=== PATIENT | male | born 1960 | race Caucasian/White ===

== ENCOUNTER 2021-07-04 16:08 | Inpatient (IN) | payer SELFPAY ==
[~2021-07-04] VITALS: Ht 177.8 cm; Wt 86.5 kg
[~2021-07-04 16:08] MED LIST: LOVAZA PO; PIOG45TA PO; RAMI10CA PO; ROSU20TA14 PO; SITA100T PO
--- NOTE | 2021-07-04 16:34 | ED Neurological Problem ---
General Stated Complaint: HX STROKE/LOSS OF BALANCE/SPEECH ISSUES Source: patient Exam Limitations: no limitations History of Present Illness Date Seen by Provider: Jul 04, 2021 Time Seen by Provider: 16:29 Initial Comments 61-year-old male non-smoker with history of hypertension, hyperlipidemia, ojd-quznerq-tksobrusw diabetes presents to ER with concern of stroke. On June 15 he had some loss of the left side of his vision in both eyes. He was not initially evaluated for this but was evaluated a few days later by [facility]. He was referred to Dr. NOBLE from optometry who agreed the likely diagnosis was stroke. He was on a baby aspirin initially but was off of it for a few days in preparation for dental extraction and forgot to restart it. He subsequently restarted his baby aspirin about 72 hours ago. Today while at his yougest son's wedding his eldest son who is a nurse noticed his gait to be staggering and dragging one of his feet. No issues with speech. Patient states that his vision today seems as good as it has been for the past 2 to 3 weeks. He is scheduled for MRI of the brain here on the . Timing/Duration: 1 week Severity: moderate Associated Symptoms: denies symptoms Allergies and Home Medications Allergies Coded Allergies: No Known Drug Allergies (Unverified , 06/14/12) Patient Home Medication List Home Medication List Reviewed: Yes Pioglitazone Hcl (Actos) 45 Mg Tablet, 45 MG PO DAILY, (Reported) Entered as Reported by: ILEANA CARRERA on 06/14/121425 Ramipril (Ramipril) 10 Mg Capsule, 10 MG PO DAILY, (Reported) Entered as Reported by: ILEANA CARRERA on 06/14/121425 Rosuvastatin Calcium (Crestor) 20 Mg Tablet, 1 EACH PO DAILY, (Reported) Entered as Reported by: ILEANA CARRERA on 06/14/121425 Sitagliptin Phosphate (Januvia) 100 Mg Tablet, 1 EACH PO DAILY, (Reported) Entered as Reported by: ILEANA CARRERA on 06/14/121425 [Lovaza] , 1 GM PO DAILY, (Reported) Entered as Reported by: ILEANA CARRERA on 06/14/121425 Review of Systems Review of Systems Constitutional: see HPI Eyes: See HPI, Other Ears, Nose, Mouth, Throat: no symptoms reported Respiratory: no symptoms reported Cardiovascular: no symptoms reported Genitourinary: no symptoms reported Musculoskeletal: no symptoms reported Psychiatric/Neurological: No Symptoms Reported; Denies Headache Endocrine: No Symptoms Reported Hematologic/Lymphatic: No Symptoms Reported Physical Exam Vital Signs Vital Signs - First Documented Capillary Refill : Height, Weight, BMI Height: '" Weight: lbs. oz. kg; BMI Method: General Appearance: WD/WN, no apparent distress HEENT: PERRL/EOMI, normal ENT inspection, other (He is noted to have some mild vision loss of the lateral aspect of the left eye and the medial aspect of the right eye. He states this is not any different today than it has been since June 15) Respiratory: lungs clear, normal breath sounds, no respiratory distress, no accessory muscle use Cardiovascular: regular rate, rhythm, no murmur Gastrointestinal: normal bowel sounds, non tender, soft Neurologic/Psychiatric: alert, normal mood/affect, oriented x 3 Crainal Nerves: normal hearing, normal speech, PERRL Coordination/Gait: normal finger to nose, normal gait (Here in the emergency department he is noted to have a normal gait) Motor/Sensory: no motor deficit, no sensory deficit, no pronator drift Skin: normal color, warm/dry Stroke Onset of Symptoms Date of Onset of Symptoms: Jul 04, 2021 Time of Symptom Onset: 14:33 Onset of Symptoms: Yes Symptoms onset unknown: Yes NIH Stroke Scale Assessment Select: Initial Level of Consciousness: 0=Alert (0), Level of Consciousness-Questions: 0=Answers both month/age (0), LOC Commands: 0=Performs both tasks (0), Gaze: Normal (0), Visual Becerra: 1=Partial hemianopia (1), Facial Movement (Facial Paresis): 0=Normal symmetrical mnt (0), Motor Function-Arms Right: 0=No drift (0), Motor Function-Arms Left: 0=No drift (0), Motor Function-Legs Right: 0=No drift (0), Motor Function-L egs Left: 0=No drift (0), Limb Ataxia: 0=Absent (0), Sensory: 0=Normal:no lo ss (0), Best Language: 0=No aphasia (0), Dysarthria: 0=Normal (0), Extinction & Inattention: 0=No abnormality (0), Total: 1 Stroke Thrombolytic Exclusion Age 18 or Over: Yes Acute intenal hemorrhage: No History of CVA: Yes Uncontrolled Coagulation Defec: No Intracranial Hemorrhage: No Severe Hypertension: No GI or Bleed: No Subarachnoid Hemorrhage: No Intracranial Neoplasm/Aneurysm: No Oral Anticoagulants: No Surgery or Trauma: No Puncture of Non-Compressible V: No Recent CPR: No Diabetic Hemorrhagic Retinopat: No Organ Biopsy: No Recent Obstetric Delivery: No Glucose: No Significant Hepatic Dysfunctio: No NIH Stoke Scale >22: No Bacterial Endocarditis: No Pericarditis: No Improving Symptoms: No Platelets: No TPA Contraindication: No IV - TPa Received IV - TPa Procedure Performed?: No Progress/Results/Core Measures Results/Orders Lab Results Laboratory Tests Test 07/04/21 16:20 07/04/21 16:31 Range/Units White Blood Count 12.6 H 4.3-11.0 10^3/uL Red Blood Count 5.56 H 4.30-5.52 10^6/uL Hemoglobin 16.0 13.3-17.7 g/dL Hematocrit 49 40-54 % Mean Corpuscular Volume 88 80-99 fL Mean Corpuscular Hemoglobin 29 25-34 pg Mean Corpuscular Hemoglobin Concent 33 32-36 g/dL Red Cell Distribution Width 12.0 10.0-14.5 % Platelet Count 326 130-400 10^3/uL Mean Platelet Volume 10.2 9.0-12.2 fL Immature Granulocyte % (Auto) 0 % Neutrophils (%) (Auto) 77 H 42-75 % Lymphocytes (%) (Auto) 15 12-44 % Monocytes (%) (Auto) 6 0-12 % Eosinophils (%) (Auto) 1 0-10 % Basophils (%) (Auto) 1 0-10 % Neutrophils # (Auto) 9.8 H 1.8-7.8 10^3/uL Lymphocytes # (Auto) 1.9 1.0-4.0 10^3/uL Monocytes # (Auto) 0.7 0.0-1.0 10^3/uL Eosinophils # (Auto) 0.1 0.0-0.3 10^3/uL Basophils # (Auto) 0.1 0.0-0.1 10^3/uL Immature Granulocyte # (Auto) 0.0 0.0-0.1 10^3/uL Prothrombin Time 13.8 12.2-14.7 SEC INR Comment 1.0 0.8-1.4 Activated Partial Thromboplast Time 30 24-35 SEC D-Dimer 0.23 0.00-0.49 UG/ML Sodium Level 138 135-145 MMOL/L Potassium Level 4.2 3.6-5.0 MMOL/L Chloride Level 100 98-107 MMOL/L Carbon Dioxide Level 24 21-32 MMOL/L Anion Gap 14 5-14 MMOL/L Blood Urea Nitrogen 15 7-18 MG/DL Creatinine 1.03 0.60-1.30 MG/DL Estimat Glomerular Filtration Rate 73 BUN/Creatinine Ratio 15 Glucose Level 257 H 70-105 MG/DL Calcium Level 9.4 8.5-10.1 MG/DL Corrected Calcium 9.4 8.5-10.1 MG/DL Total Bilirubin 0.6 0.1-1.0 MG/DL Aspartate Amino Transf (AST/SGOT) 12 5-34 U/L Alanine Aminotransferase (ALT/SGPT) 13 0-55 U/L Alkaline Phosphatase 62 40-136 U/L Troponin I < 0.028 <0.028 NG/ML Total Protein 6.9 6.4-8.2 GM/DL Albumin 4.0 3.2-4.5 GM/DL Glucometer 222 H 70-110 MG/DL My Orders Orders - FARAZ BYERS BUILDING EQUIPMENT INSPECTOR Cbc With Automated Diff (07/04/21 16:11) Protime With Inr (07/04/21 16:11) Partial Thromboplastin Time (07/04/21 16:11) Comprehensive Metabolic Panel (07/04/21 16:11) Fibrin Degradation Products (07/04/21 16:11) Troponin I (07/04/21 16:11) Ua Culture If Indicated (07/04/21 16:11) Chest 1 View, Ap/Pa Only (07/04/21 16:11) Ekg Tracing (07/04/21 16:11) Accucheck Stat ONCE (07/04/21 16:11) Ed Iv/Invasive Line Start (07/04/21 16:11) Ed Iv/Invasive Line Start (07/04/21 16:11) Vital Signs Stroke Patient Q15M (07/04/21 16:11) Ct Head Wo-R/O Stroke (07/04/21 16:11) O2 (07/04/21 16:11) Intake & Output 06,14,22 (07/04/21 16:11) Monitor-Rhythm Ecg Trace Only (07/04/21 16:11) Dysphagia Screening Tool (07/04/21 16:11) Post Thrombolytic Adminstratio (07/04/21 16:11) Lipid Panel (07/05/21 06:00) Ct Angio Head/Neck (07/04/21 16:11) Vital Signs/I&O 07/04/21 07/04/21 16:20 16:20 Temp 36.8 Pulse 91 Resp 20 B/P (MAP) 142/99 (113) Pulse Ox 98 97 O2 Delivery Room Air Room Air Departure Communication (Admissions) NAME: HENRY BAUM [facility] REC#: [id number] PT STATUS: REG ER : 1960 PHYSICIAN: FARAZ BYERS APRN ADMIT DATE: 07/04/21/ER Draft Date of Exam:07/04/21 CT HEAD WO-R/O STROKE EXAMINATION: CT head without contrast. TECHNIQUE: Multiple contiguous axial images were obtained through the brain without the use of intravenous contrast. All CT scans use one or more of the following dose optimizing techniques: automated exposure control, MA and/or KvP adjustment based on patient size and exam type or iterative reconstruction. HISTORY: Focal neurologic deficit. Gait problems. COMPARISON: None available. FINDINGS: Age-indeterminate area of ischemia is seen in the right parietal occipital region with associated faint hyperattenuation. Additional area of age-indeterminate ischemia is seen in the right frontal lobe. No evidence of acute hemorrhage. No hydrocephalus. No midline shift or mass effect. The orbits are normal. Paranasal sinuses are normal. Mastoid air cells are clear. No soft tissue abnormality is seen. No osseus lesions or fractures are seen. IMPRESSION: 1. Likely subacute ischemia in the right parieto-occipital region. Associated petechial hemorrhage is present. No midline shift. Consider MRI brain to further evaluate. 2. Additional area of age-indeterminate ischemia in the right frontal lobe. Findings were called to Faraz Byers APRN, at 4:55 PM on 07/04/[address] Vinh Gaitan. Dictated on workstation # [id number] Dict: 07/04/21 1651 Trans: 07/04/21 1700 [facility] [id number] Interpreted by: VINH GAITAN DO Electronically signed by: Family Conversation His EKG shows sinus rhythm at 89 without ectopy. Normal intervals no ST segment changes 1633 his NIH score is 1 for partial hemianopia which is a pre-existing symptom and not new to this gait abnormality noticed 2 hours prior to presentation. 1846-discussed with Dr. Osorio from stroke neurology at about whether or not to give Plavix in addition to his aspirin. She recommends withholding Plavix until we determine the degree of petechial hemorrhage on MRI. Discussed with her that that would be Tuesday at the soonest and she agrees that that would be fine. She would like to see him admitted for echocardiogram and a more prompt stroke work-up which is certainly reasonable given his young age. I spoke with Dr. Robledo on-call for [facility] and we will admit on aspirin, consult Dr. Goetz. The patient does not have any history of atrial fibrillation. We will start with an echocardiogram. Impression Primary Impression: Acute ischemic stroke Disposition: ADMITTED INPATIENT Condition: Stable Admissions Decision to Admit Reason: Admit from ER (General) Decision to Admit/Date: Jul 04, 2021 Time/Decision to Admit Time: 18:52 Departure-Patient Inst. Referrals: LESLI JOHNSON DO (PCP) Primary Care Physician FARAZ BYERS APRN Jul 04, 2021 16:34
[2021-07-04 16:35] LABS: BASOPHILS # (AUTO) 0.1 10^3/uL (0.0-0.1); BASOPHILS % (AUTO) 1 % (0-10); EOSINOPHILS # (AUTO) 0.1 10^3/uL (0.0-0.3); EOSINOPHILS % (AUTO) 1 % (0-10); HEMATOCRIT 49 % (40-54); LYMPHOCYTES # (AUTO) 1.9 10^3/uL (1.0-4.0); LYMPHOCYTES % (AUTO) 15 % (12-44); MEAN CORPUSCULAR HEMOGLOBIN 29 pg (25-34); MEAN CORPUSCULAR HGB CONC 33 g/dL (32-36); MEAN CORPUSCULAR VOLUME 88 fL (80-99); MEAN PLATELET VOLUME 10.2 fL (9.0-12.2); MONOCYTES # (AUTO) 0.7 10^3/uL (0.0-1.0); MONOCYTES % (AUTO) 6 % (0-12); NEUTROPHILS # (AUTO) 9.8 10^3/uL (1.8-7.8); NEUTROPHILS % (AUTO) 77 % (42-75); PLATELET COUNT 326 10^3/uL (130-400); WHITE BLOOD COUNT 12.6 10^3/uL (4.3-11.0)
[2021-07-04 16:52] LABS: FIBRIN DEGRADATION PRODUCTS 0.23 UG/ML (0.00-0.49); PROTHROMBIN TIME PATIENT 13.8 SEC (12.2-14.7)
[2021-07-04 16:54] LABS: ALANINE AMINOTRANSFERASE 13 U/L (0-55); ALKALINE PHOSPHATASE 62 U/L (40-136); BILIRUBIN,TOTAL 0.6 MG/DL (0.1-1.0); BUN/CREATININE RATIO 15; CALCIUM 9.4 MG/DL (8.5-10.1); CARBON DIOXIDE 24 MMOL/L (21-32); CHLORIDE 100 MMOL/L (98-107); CREATININE SERUM 1.03 MG/DL (0.60-1.30); GFR ESTIMATED 73; GLUCOSE 257 MG/DL (70-105); POTASSIUM 4.2 MMOL/L (3.6-5.0); SODIUM 138 MMOL/L (135-145); TOTAL PROTEIN 6.9 GM/DL (6.4-8.2)
[2021-07-04] MEDS ORDERED: IOHEXOL 350 MG/ML 100 ML (OMNIPAQUE 350) VIAL IV ONE (17:00)
[2021-07-04] MEDS ORDERED: HOLD METFORMIN - RECEIVED CONTRAST 20 ML VIAL IV SCH (17:00)
--- NOTE | 2021-07-04 17:01 | Diagnostic Imaging Report ---
EXAMINATION: CT head without contrast. TECHNIQUE: Multiple contiguous axial images were obtained through the brain without the use of intravenous contrast. All CT scans use one or more of the following dose optimizing techniques: automated exposure control, MA and/or KvP adjustment based on patient size and exam type or iterative reconstruction. HISTORY: Focal neurologic deficit. Gait problems. COMPARISON: None available. FINDINGS: Age-indeterminate area of ischemia is seen in the right parietal occipital region with associated faint hyperattenuation. Additional area of age-indeterminate ischemia is seen in the right frontal lobe. No evidence of acute hemorrhage. No hydrocephalus. No midline shift or mass effect. The orbits are normal. Paranasal sinuses are normal. Mastoid air cells are clear. No soft tissue abnormality is seen. No osseus lesions or fractures are seen. IMPRESSION: 1. Likely subacute ischemia in the right parieto-occipital region. Associated petechial hemorrhage is present. No midline shift. Consider MRI brain to further evaluate. 2. Additional area of age-indeterminate ischemia in the right frontal lobe. Findings were called to Damaso Byers APRN, at 4:55 PM on 07/04/[address] Leo Gaitan. Dictated by: Dictated on workstation # [id number]
--- NOTE | 2021-07-04 17:16 | Diagnostic Imaging Report ---
INDICATION: Gait, balance problems, onset 1400 today. History of recent stroke.. TECHNIQUE: Single view chest 5:15 PM. CORRELATION STUDY: None FINDINGS: The heart size, mediastinal configuration and pulmonary vascularity are within normal limits. The lungs are clear with no consolidating infiltrate. There is no significant effusion or pneumothorax. IMPRESSION: 1. Negative appearing portable chest. Dictated by: Dictated on workstation # [id number]
--- NOTE | 2021-07-04 18:15 | Diagnostic Imaging Report ---
PROCEDURE: CT angiography of the head and CT angiography of the neck with and without contrast. TECHNIQUE: Contiguous noncontrast images were obtained from the skull base through the vertex. After intravenous contrast administration, helical CT angiography of the neck was performed. Source data was reformatted into 3D MIP projections. Delayed post contrast acquisition was also obtained. Auto Exposure Controls were utilized during the CT exam to meet ALARA standards for radiation dose reduction. INDICATION: 61-year-old male, gait and balance problems starting at 1400 hours today. History of recent stroke one month ago. Now dragging left leg. COMPARISON: CT head 07/04/2021 FINDINGS: CTA NECK: Aorta: Aortic arch is limited in evaluation with artifact present. Does appear relatively normal, with standard three vessel branching pattern. Right Common/Internal/External Carotid Artery: Patent and without significant stenosis. Trace calcification at the bulb. Left Common/Internal/External Carotid Artery: Mild calcification at the carotid bulb and origin of the internal and external carotid artery. No significant stenosis. There is short segment moderate intimal thickening and plaque-like formation of the proximal left external carotid artery with approximately 50% narrowing. Vertebral arteries: Slightly dominant left vertebral artery. Mild narrowing at the origin of the right vertebral artery. Vertebral arteries are patent to the skull base terminating into the basilar artery. Non-vascular: No concerning cervical lymphadenopathy. The airway is patent. CTA HEAD: Anterior Circulation: Moderate atherosclerotic plaque in the bilateral carotid siphons. There is at least uyxx-df-vfldqoio narrowing suggested. The bilateral middle cerebral arteries are patent and without stenosis. The anterior cerebral arteries are patent and without stenosis. Posterior Circulation: Small caliber distal right vertebral artery. Both terminating into the basilar artery. The basilar artery is patent and without stenosis. Posterior cerebral arteries appearing patent. There is somewhat diminished contrast flow within the posterior inferior cerebellar artery. Post Contrast Head: No concerning enhancement on delayed post-contrast imaging. IMPRESSION: 1. Moderate atherosclerotic change about the terminal ICAs with mild to moderate narrowing present. No definitive evidence for large vessel occlusion of the [place]. 2. Negative CTA of the neck. Dictated by: Dictated on workstation # [id number]
[2021-07-04 19:23] LABS: BILIRUBIN,URINE NEGATIVE (NEGATIVE); CLARITY,URINE CLEAR; COLOR,URINE YELLOW; GLUCOSE, URINE (UA) 3+ (NEGATIVE); KETONES,URINE NEGATIVE (NEGATIVE); LEUKOCYTE ESTERASE ,URINE NEGATIVE (NEGATIVE); NITRITE,URINE NEGATIVE (NEGATIVE); PROTEIN,URINE NEGATIVE (NEGATIVE)
[2021-07-04 19:40] LABS: BACTERIA,URINE NEGATIVE /HPF
[2021-07-04 21:00] VITALS: BP 119/74
[2021-07-04] MEDS ORDERED: LOPERAMIDE 2 MG (IMODIUM) TABLET PO PRN (21:00)
[2021-07-04] MEDS ORDERED: guaiFENesin/CODEINE (ROBITUSSIN AC) 10ML UDC PO PRN (21:00)
[2021-07-04] MEDS ORDERED: ALPRAZolam 0.25 MG (XANAX) TAB PO PRN (21:00)
[2021-07-04] MEDS ORDERED: diphenhydrAMINE 25 MG TAB (BENADRYL) PO PRN (21:00)
[2021-07-04] MEDS ORDERED: ONDANSETRON 4 MG (ZOFRAN) ORAL DISSOLVE TAB PO PRN (21:00)
[2021-07-04] MEDS ORDERED: MELATONIN 3 MG TABLET PO PRN (21:00)
[2021-07-04] MEDS ORDERED: CALCIUM CARBONATE 500 MG (TUMS) TAB.CHEW PO PRN (21:00)
[2021-07-04] MEDS ORDERED: ACETAMINOPHEN 500 MG TAB (TYLENOL) PO PRN (21:00)
[2021-07-04] MEDS ORDERED: HYDROcodone/APAP 5 MG/325 MG (LORTAB) TAB PO PRN (21:00)
[2021-07-04] MEDS ORDERED: DOCUSATE SODIUM 100 MG (COLACE) CAP PO PRN (21:00)
[2021-07-04] MEDS ORDERED: ONDANSETRON 4 MG/2 ML (SDV) Z0FRAN IVP PRN (21:00)
[2021-07-04] MEDS: polyethylene glycoL POWDER 17 GM (MIRALAX) PACK PO SCH (21:38)
[2021-07-04] MEDS: SENNA W/DOCUSATE (SENOKOT S) TABLET PO SCH (21:39)
[2021-07-04] MEDS: ENOXAPARIN 40 MG/0.4 ML (LOVENOX) SYR SC SCH (22:05)
[2021-07-04] MEDS: inSUlin ASPART (NovoLOG) 1 UNIT/0.01 ML (CHARGE PER UNIT) SC SCH (22:05)
[2021-07-04] MEDS: CATHETER FLUSH 10 ML SYR IV SCH (22:06)
[2021-07-05] VITALS (7 sets, daily range): BP systolic 118–143; BP diastolic 76–95
[2021-07-05 05:36] LABS: BASOPHILS # (AUTO) 0.1 10^3/uL (0.0-0.1); BASOPHILS % (AUTO) 1 % (0-10); EOSINOPHILS # (AUTO) 0.3 10^3/uL (0.0-0.3); EOSINOPHILS % (AUTO) 3 % (0-10); HEMATOCRIT 47 % (40-54); HEMOGLOBIN 15.2 g/dL (13.3-17.7); LYMPHOCYTES # (AUTO) 2.6 10^3/uL (1.0-4.0); LYMPHOCYTES % (AUTO) 32 % (12-44); MEAN CORPUSCULAR HEMOGLOBIN 29 pg (25-34); MEAN CORPUSCULAR HGB CONC 32 g/dL (32-36); MEAN CORPUSCULAR VOLUME 89 fL (80-99); MEAN PLATELET VOLUME 10.5 fL (9.0-12.2); MONOCYTES # (AUTO) 0.6 10^3/uL (0.0-1.0); MONOCYTES % (AUTO) 8 % (0-12); NEUTROPHILS # (AUTO) 4.7 10^3/uL (1.8-7.8); NEUTROPHILS % (AUTO) 56 % (42-75); PLATELET COUNT 283 10^3/uL (130-400); WHITE BLOOD COUNT 8.4 10^3/uL (4.3-11.0)
[2021-07-05 05:58] LABS: CALCIUM 9.2 MG/DL (8.5-10.1); CREATININE SERUM 0.92 MG/DL (0.60-1.30); POTASSIUM 4.3 MMOL/L (3.6-5.0)
[2021-07-05] MEDS: CATHETER FLUSH 10 ML SYR IV SCH ×3 (06:12→20:54)
[2021-07-05] MEDS: inSUlin ASPART (NovoLOG) 1 UNIT/0.01 ML (CHARGE PER UNIT) SC SCH ×4 (06:12→20:53)
[2021-07-05] MEDS: polyethylene glycoL POWDER 17 GM (MIRALAX) PACK PO SCH ×2 (09:17→20:37)
[2021-07-05] MEDS: SENNA W/DOCUSATE (SENOKOT S) TABLET PO SCH ×2 (09:17→20:37)
[2021-07-05] MEDS: ASPIRIN E.C. 81 MG (ECOTRIN) TAB PO SCH (09:19)
--- NOTE | 2021-07-05 10:54 | History & Physical-Hospitalist ---
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 Menezes he was in the midst of obtaining MRI on Tuesday but he was set the wedding of his youngest son and the nurses and his family noted balance issues and visual changes that concern them. He was assessed to have changes on CT scan but was not a TPA candidate. Stroke neurology up at was contacted. Patient will have MRI tomorrow. PT and OT ordered and high-dose statin therapy with aspirin initiated. Echocardiogram performed and Dr. Arcos will consult. We will move him down to fourth floor on telemetry. Source: patient, RN/MD, old records Exam Limitations: no limitations Date Seen 07/05/21 Time Seen by a Provider: 10:30 Attending Physician Fariha Tello DO PCP Chris Sethi DO Referring Physician Date of Admission Jul 04, 2021 at 17:40 Home Medications & Allergies Home Medications Reviewed patient Home Medication Reconciliation performed by pharmacy medication reconciliations glass technician/installer and/or nursing. Patients Allergies have been reviewed. Allergies Allergies Coded Allergies No Known Drug Allergies (Mrjpkpofkm38/17/12) Past Btwgkrg-Drmqxi-Qqvxrn Hx Patient Social History Marrital Status: single Employed/Student: employed Tobacco Use?: No Smoking Status: Never a Smoker Use of E-Cig and/or Vaping dev: No Substance use?: No Alcohol Use?: No Pt feels they are or have been: No Current Status Advance Directives: No Communicates: Verbally Primary Language: Croatian Preferred Spoken Language: Croatian Is interpretation needed?: No Implanted or Applied Medical D: None Past Medical History High Cholesterol, Hypertension Diabetes, Non-Insulin dep Review of Systems Constitutional: see HPI EENTM: vision loss Respiratory: no symptoms reported Cardiovascular: no symptoms reported Gastrointestinal: no symptoms reported Genitourinary: no symptoms reported Musculoskeletal: no symptoms reported Skin: no symptoms reported Psychiatric/Neurological: Numbness, Weakness, Other (Disequilibrium) All Other Systems Reviewed Negative Unless Noted: Yes Physical Exam Physical Exam Vital Signs Vital Signs - First Documented Capillary Refill : Less Than 3 Seconds Height, Weight, BMI Height: '" Weight: lbs. oz. kg; 27.36 BMI Method: General Appearance: No Apparent Distress Eyes: Right Eye Normal Inspection, Right Eye PERRL HEENT: PERRL/EOMI, Normal ENT Inspection, Pharynx Normal, Moist Mucous Membr anes Neck: Full Range of Motion, Normal Inspection, Non Tender Respiratory: Chest Non Tender, Lungs Clear, Normal Breath Sounds, No Accessory Muscle Use, No Respiratory Distress Cardiovascular: Regular Rate, Rhythm, No Edema, No Gallop, No JVD, No Murmur, Normal Peripheral Pulses Gastrointestinal: Normal Bowel Sounds, No Organomegaly, No Pulsatile Mass, Non Tender, Soft Back: Normal Inspection, No CVA Tenderness, No Vertebral Tenderness Extremity: Normal Capillary Refill, Normal Inspection, Normal Range of Motion, Non Tender, No Calf Tenderness, No Pedal Edema Neurologic/Psychiatric: Alert, Oriented x3, No Motor/Sensory Deficits, Normal M ood/Affect, crime prevention police officer II-XII Norm as Tested, Abnormal Gait Skin: Normal Color, Warm/Dry Lymphatic: No Adenopathy Results Results/Procedures Labs Laboratory Tests 07/04/21 16:20 07/05/21 05:15 Patient resulted labs reviewed. Assessment/Plan Admission Diagnosis Assessment: Presumed CVA MRI to confirm tomorrow Diabetes Hypertension Hyperlipidemia Plan: Cardiology consulted Echo MRI Admission Status: Inpatient Order (span 2 midnights) Reason for Inpatient Admission: CVA Diagnosis/Problems Diagnosis/Problems (1) Acute ischemic stroke Status: Acute Clinical Quality Measures Stroke: Date of last known well: Jul 04, 2021 Time of last known well: 14:33 Symptoms onset unknown: Yes FARIHA TELLO DO Jul 05, 2021 10:54
[2021-07-05] MEDS ORDERED: ACETAMINOPHEN 325 MG TABLET PO PRN (11:30)
--- NOTE | 2021-07-05 14:52 | Consultation-Cardiology ---
HPI-Cardiology Cardiology Consultation: Date of Consultation 07/05/21 Time Seen by a Provider: 13:50 Date of Admission Attending Physician Fariha Robledo DO Admitting Physician Chris Sethi DO Consulting Physician JAVON STEIN MD, MA, FACP, FACC, [facility] [place], [facility] Physician requesting consult: Dr Robledo HPI: Chief Complaint: Recent loss of L field of vision and subsequent gait imbalance 61 yo man who had loss of the L visual field on Jun 15, 2021. 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 Had gait imbalance on day of admission (07/04/21) and came to the hospital from where he was admitted for management of stroke by Dr Robledo. No cp or palp or syncope or shortness of breath. No swelling. No fever or chills. No n/v/d Review of Systems-Cardiology Review of Systems Constitutional: lightheadedness; No malaise, No tiredness, No weight loss, No weight gain Eyes: As described under HPI Ears/Nose/Throat: No ear discharge, No nasal drainage, No recent hearing loss Respiratory: As described under HPI Cardiovascular: As described under HPI Gastrointestinal: As described under HPI Genitourinary: No dysuria, No hematuria, No urine frequency changes Musculoskeletal: No back pain, No joint pain Skin: No rash, No ulcerations Psychiatric/Neurological: As described under HPI; No seizure, No syncope Hematologic: No bleeding abnormalities KEQ-Ckbosu-Khhzkt Hx Patient Social History Smoking Status: Never a Smoker Have you traveled recently?: No Alcohol Use?: No Pt feels they are or have been: No Past Medical History PMH As described under Assessment. Family Medical History Family Medical History: He does not report fam h/o early CAD or SCD Allergies and Home Medications Allergies Coded Allergies: No Known Drug Allergies (Unverified , 06/14/12) Patient Home Medication List Home Medication List Reviewed: Yes Pioglitazone Hcl (Actos) 45 Mg Tablet, 45 MG PO DAILY, (Reported) Entered as Reported by: ILEANA CARRERA on 06/14/12 142 Ramipril (Ramipril) 10 Mg Capsule, 10 MG PO DAILY, (Reported) Entered as Reported by: ILEANA CARRERA on 06/14/12 142 Rosuvastatin Calcium (Crestor) 20 Mg Tablet, 1 EACH PO DAILY, (Reported) Entered as Reported by: ILEANA CARRERA on 06/14/121425 Sitagliptin Phosphate (Januvia) 100 Mg Tablet, 1 EACH PO DAILY, (Reported) Entered as Reported by: ILEANA CARRERA on 06/14/12 142 [Lovaza] , 1 GM PO DAILY, (Reported) Entered as Reported by: ILEANA CARRERA on 06/14/121425 Physical Exam-Cardiology Physical Exam Vital Signs/I&O 07/05/21 07/05/21 07/05/21 07/05/21 04:00 07:00 07:50 09:00 Temp 36.6 Pulse 91 77 Resp 16 B/P (MAP) 129/76 (93) 130/95 (107) Pulse Ox 97 O2 Delivery Room Air Room Air Room Air 07/05/21 07/05/21 07/05/21 12:00 12:50 13:29 Temp 36.4 37.1 Pulse 80 84 85 Resp 18 20 B/P (MAP) 133/78 (96) 143/82 (102) Pulse Ox 97 96 O2 Delivery Room Air Room Air 07/05/21 00:00 Intake Total 0 ml Balance 0 ml Capillary Refill : Less Than 3 Seconds Constitutional: AAO x 3, well-developed, well-nourished HEENT: EOMI, hearing is well preserved; No xanthelasmas are seen Neck: carotid pulses are 2 + bilaterally, with good upstrokes Respiratory: No accessory muscle use; other (good, bilateral air entry) Cardiovascular: regular rate-rhythm, S1 and S2, systolic murmur (faint BRII at card base) Gastrointestinal: No tender; soft; No guarding, No rebound; audible bowel sounds Extremities: No clubbing, No cyanosis, No significant edema Neurologic/Psychiatric: oriented x 3, other (moves all limbs equally) Skin: No rash on exposed areas, No ulcerations on exposed areas Data Review Labs Laboratory Tests 07/04/21 16:20: White Blood Count 12.6H, Red Blood Count 5.56H, Hemoglobin 16.0, Hematocrit 49, Mean Corpuscular Volume 88, Mean Corpuscular Hemoglobin 29, Mean Corpuscular Hemoglobin Concent 33, Red Cell Distribution Width 12.0, Platelet Count 326, Mean Platelet Volume 10.2, Immature Granulocyte % (Auto) 0, Neutrophils (%) (Auto) 77H, Lymphocytes (%) (Auto) 15, Monocytes (%) (Auto) 6, Eosinophils (%) (Auto) 1, Basophils (%) (Auto) 1, Neutrophils # (Auto) 9.8H, Lymphocytes # (Auto) 1.9, Monocytes # (Auto) 0.7, Eosinophils # (Auto) 0.1, Basophils # (Auto) 0.1, Immature Granulocyte # (Auto) 0.0, Prothrombin Time 13.8, INR Comment 1.0, Activated Partial Thromboplast Time 30, D-Dimer 0.23, Sodium Level 138, Potassium Level 4.2, Chloride Level 100, Carbon Dioxide Level 24, Anion Gap 14, Blood Urea Nitrogen 15, Creatinine 1.03, Estimat Glomerular Filtration Rate 73, BUN/Creatinine Ratio 15, Glucose Level 257H, Calcium Level 9.4, Corrected Calcium 9.4, Total Bilirubin 0.6, Aspartate Amino Transf (AST/SGOT) 12, Alanine Aminotransferase (ALT/SGPT) 13, Alkaline Phosphatase 62, Troponin I < 0.028, Total Protein 6.9, Albumin 4.0 07/04/21 16:31: Glucometer 222H 07/04/21 19:15: Urine Color YELLOW, Urine Clarity CLEAR, Urine pH 6.0, Urine Specific [place] <=1.005, Urine Protein NEGATIVE, Urine Glucose (UA) 3+H, Urine Ketones NEGATIVE, Urine Nitrite NEGATIVE, Urine Bilirubin NEGATIVE, Urine Urobilinogen 0.2, Urine Leukocyte Esterase NEGATIVE, Urine RBC (Auto) NEGATIVE, Urine RBC NONE, Urine WBC NONE, Urine Squamous Epithelial Cells NONE, Urine Renal Epithelial Cells NONE, Urine Crystals NONE, Urine Bacteria NEGATIVE, Urine Casts NONE, Urine Mucus NEGATIVE, Urine Culture Indicated NO 07/04/21 21:41: Glucometer 209H 07/05/21 05:15: White Blood Count 8.4, Red Blood Count 5.30, Hemoglobin 15.2, Hematocrit 47, Mean Corpuscular Volume 89, Mean Corpuscular Hemoglobin 29, Mean Corpuscular Hemoglobin Concent 32, Red Cell Distribution Width 12.0, Platelet Count 283, Mean Platelet Volume 10.5, Immature Granulocyte % (Auto) 0, Neutrophils (%) ( Auto) 56, Lymphocytes (%) (Auto) 32, Monocytes (%) (Auto) 8, Eosinophils (%) (Auto) 3, Basophils (%) (Auto) 1, Neutrophils # (Auto) 4.7, Lymphocytes # (Auto) 2.6, Monocytes # (Auto) 0.6, Eosinophils # (Auto) 0.3, Basophils # (Auto) 0.1, Immature Granulocyte # (Auto) 0.0, Sodium Level 138, Potassium Level 4.3, Chloride Level 102, Carbon Dioxide Level 22, Anion Gap 14, Blood Urea Nitrogen 16, Creatinine 0.92, Estimat Glomerular Filtration Rate 84, BUN/Creatinine Ratio 17, Glucose Level 158H, Calcium Level 9.2, Triglycerides Level 218H, Cholesterol Level 150, LDL Cholesterol Direct 91, VLDL Cholesterol 44H, HDL Cholesterol 38L 07/05/21 10:49: Glucometer 242H A/P-Cardiology Assessment/Admission Diagnosis Recent / acute CVA resulting in L homonymous hemianopsia and subsequent gait imbalance, managed by Dr Robledo - Echo on 07/05/21: LVEF 60-65%, study within normal limits Carotid arterial disease, mild to mod (on CTA of head and neck on 07/04/21) Discussion and Recomendations * Management of stroke is by Dr Robledo * Tele has not indicated any arrhythmia * If we continue to see no a fib on tele, we then would recommend ILR. I had a long and detailed discussion with him and his son regarding this, and answered their questiosn Clinical Quality Measures Stroke: Date of last known well: Jul 04, 2021 Time of last known well: 14:33 Symptoms onset unknown: Yes JAVON STEIN MD [facility] CCDS Jul 05, 2021 14:52
[2021-07-05] MEDS: ENOXAPARIN 40 MG/0.4 ML (LOVENOX) SYR SC SCH (20:53)
[2021-07-06] VITALS: BP 153/88
[2021-07-06 04:31] VITALS: BP 127/62
[2021-07-06 06:13] LABS: BASOPHILS # (AUTO) 0.1 10^3/uL (0.0-0.1); BASOPHILS % (AUTO) 1 % (0-10); EOSINOPHILS # (AUTO) 0.2 10^3/uL (0.0-0.3); EOSINOPHILS % (AUTO) 2 % (0-10); HEMATOCRIT 45 % (40-54); HEMOGLOBIN 14.6 g/dL (13.3-17.7); LYMPHOCYTES # (AUTO) 2.3 10^3/uL (1.0-4.0); LYMPHOCYTES % (AUTO) 29 % (12-44); MEAN CORPUSCULAR HEMOGLOBIN 29 pg (25-34); MEAN CORPUSCULAR HGB CONC 32 g/dL (32-36); MEAN CORPUSCULAR VOLUME 89 fL (80-99); MEAN PLATELET VOLUME 10.6 fL (9.0-12.2); MONOCYTES # (AUTO) 0.7 10^3/uL (0.0-1.0); MONOCYTES % (AUTO) 9 % (0-12); NEUTROPHILS # (AUTO) 4.7 10^3/uL (1.8-7.8); NEUTROPHILS % (AUTO) 59 % (42-75); PLATELET COUNT 260 10^3/uL (130-400)
[2021-07-06] MEDS: inSUlin ASPART (NovoLOG) 1 UNIT/0.01 ML (CHARGE PER UNIT) SC SCH ×4 (06:22→21:37)
[2021-07-06] MEDS: CATHETER FLUSH 10 ML SYR IV SCH ×3 (06:23→21:42)
[2021-07-06 06:35] LABS: ALBUMIN 3.5 GM/DL (3.2-4.5); BILIRUBIN,TOTAL 0.4 MG/DL (0.1-1.0); CALCIUM 9.3 MG/DL (8.5-10.1); CREATININE SERUM 1.1 MG/DL (0.60-1.30); POTASSIUM 4.6 MMOL/L (3.6-5.0); TOTAL PROTEIN 6.5 GM/DL (6.4-8.2)
[2021-07-06 08:00] VITALS: BP 151/87
[2021-07-06] MEDS: ASPIRIN E.C. 81 MG (ECOTRIN) TAB PO SCH (08:40)
[2021-07-06] MEDS: polyethylene glycoL POWDER 17 GM (MIRALAX) PACK PO SCH ×2 (09:07→21:18)
[2021-07-06] MEDS: SENNA W/DOCUSATE (SENOKOT S) TABLET PO SCH ×2 (09:08→21:18)
--- NOTE | 2021-07-06 11:08 | Physical Therapy Evaluation ---
PT Evaluation-General Medical Diagnosis Admission Date Jul 04, 2021 at 17:40 Medical Diagnosis: CVA, Balance problems, Left field of vision loss Onset Date: Jul 03, 2021 Therapy Diagnosis Therapy Diagnosis: Gait deficit, strength deficit Precautions Precautions/Isolations: Fall Prevention, Standard Precautions Referral Physician: Dr. Robledo Reason for Referral: Evaluation/Treatment Social History Home: Single Level Current Living Status: Alone Entry Into Home: Stairs With Railing PT Steps Into Home: 3 Prior Prior Level of Function SCALE: Activities may be completed with or without assistive devices. 8-Neddtcqjhz-bxhszbj completes the activity by him/herself with no assistance from a helper. 5-Set-up or Clean-up Assistance-helper sets up or cleans up; patient completes activity. [place] assists only prior to or following the activity. 4-Supervision or Touching Assistance-helper provides verbal cues and/or t ouching/steadying and/or contact guard assistance as patient completes activity. Assistance may be provided throughout the activity or intermittently. 3-Partial/Moderate Assistance-helper does LESS THAN HALF the effort. [place] lifts, holds or supports trunk or limbs, but provides less than half the effort. 2-Substantial/Maximal Assistance-helper does MORE THAN HALF the effort. [place] lifts or holds trunk or limbs and provides more than half the effort. 1-Scqzuodsv-fvewhk does ALL the effort. Patient does none of the effort to complete the activity. Or, the assistance of 2 or more helpers is required for the patient to complete the activity. If activity was not attempted, code reason: 7-Patient Refused. 9-Not Applicable-not attempted and the patient did not perform the activity before the current illness, exacerbation or injury. 10-Not Attempted due to Environmental Limitations-(lack of equipment, weather restraints, etc.). 88-Not Attempted due to Medical Conditions or Safety Concerns. Bed Mobility: 6 Transfers (B,C,W/C): 6 Gait: 6 Stairs: 6 Indoor Mobility (Ambulation): Independent Stairs: Independent PT Evaluation-Current Subjective Patient reports he is still experiencing some "fogginess" of the lateral field of his left eye. Patient rates pain at 0/10 currently. Agreeable to PT evaluation. Objective Patient Orientation: Person, Place, Time, Situation ROM/Strength ROM Lower Extremities WFLs all planes bilaterally Strength Lower Extremities 5/5 grossly Sensory Vision: Functional Hearing: Functional Sensation Right Lower Extremit: Intact Sensation Left Lower Extremity: Intact Transfers Roll Left to Right (QC): 6 Sit to Lying (QC): 6 Lying to Sitting/Side of Bed(Q: 6 Sit to Stand (QC): 6 Chair/Qpk-wu-Eqzbm Xfer(QC): 6 Toilet Transfer (QC): 6 Gait Does the Patient Walk?: Yes Mode of Locomotion: Walk Anticipated Mode of Locomotion: Walk Walk 10 feet (QC): 5 Walk 50 ft with 2 Turns(QC): 5 Walk 150 ft (QC): 5 Distance: 350 feet Gait Assistive Device: None Balance Sitting Static: Normal Sitting Dynamic: Normal Standing Static: Good Standing Dynamic: Good Assessment/Needs Patient tolerated treatment well. Demonstrates I with all observed bed mobility and transfers. Patient ambulates 350 feet with no assistive device, and I. Patient ambulates with good overall gait pattern until the final 50 + feet. At that time he begins to demonstrate a slight vaulting pattern on the left LE in which it appears he locks his left knee into TKE during the stance phase of gait. Patient is able to ambulate without left knee locked, however appears more comfortable towards the end of gait. Patient reports he is scheduled for 2 procedures later and then reports he will go home. Will keep patient on PT schedule at this time to ensure continued safety with gait and follow while in the hospital. Patient in bed post treatment with all needs met, nurse notified, patient son and fiance in the room, call light in hand. Rehab Potential: Good PT Retirement Goals Retirement Goals PT Retirement Goals Time Frame: Jul 13, 2021 Does the Patient Walk: Yes Walk 10 feet (QC): 6 Walk 50ft with 2 Turns (QC): 6 Walk 150 ft (QC): 6 Walking 10ft on Uneven Surface: 6 1 Step (curb) (QC): 6 4 Steps (QC): 6 12 Steps (QC): 6 PT Plan Problem List Problem List: Activity Tolerance, Functional Strength, Safety, Balance, Gait, Transfer, Bed Mobility, ROM Treatment/Plan Treatment Plan: Continue Plan of Care Treatment Plan: Bed Mobility, Education, Functional Activity Cheryl, Functional Strength, Group Therapy, Gait, Safety, Therapeutic Exercise, Transfers Treatment Duration: Aug 26, 2021 Frequency: 6 times per week Estimated Hrs Per Day: .5 hour per day Safety Risks/Education Patient Education: Gait Training Teaching Recipient: Patient Teaching Methods: Demonstration, Discussion Response to Teaching: Verbalize Understanding, Return Demonstration Discharge Recommendations Target Placement Home with assistance as needed. Time/GCodes Time In: 1000 Time Out: 1025 Total Billed Treatment Time: 25 Total Billed Treatment Visit, Kandace Chow JOHN A PT Jul 06, 2021 11:08
[2021-07-06] MEDS ORDERED: LIDOCAINE 1% INJ 20 ML 20 ML VIAL ONE (11:27)
[2021-07-06 11:40] VITALS: BP 140/82
--- NOTE | 2021-07-06 12:17 | Occupational Therapy Eval ---
OT Evaluation-General/PLF Medical Diagnosis Admission Date Jul 04, 2021 at 17:40 Medical Diagnosis: CVA, Balance problems, Left field of vision loss Onset Date: Jul 03, 2021 Therapy Diagnosis Therapy Diagnosis: impaired vision Precautions Precautions/Isolations: Fall Prevention, Standard Precautions Referral Physician: Dr. Robledo Referral Reason: Evaluation/Treatment Medical History Pertinent Medical History: DM, HTN Current History Pt presents to ER after left side peripheral vision deficit noted on June 15, 2021 and multiple optometry visits. Family reports they noted some balance issues and visual changes on day of admission. He reports living alone but will be moving into his mothers post d/c. His mothers home has 3 steps inside. He was indep with adls and iadls pre admission. Not using any assistive device, still drives. Social History Home: Single Level Current Living Status: Alone Entry Into Home: Stairs With Railing Steps Into Home: 3 ADL-Prior Level of Function SCALE: Activities may be completed with or without assistive devices. 1-Xihwdmfbad-oyrtxqg completes the activity by him/herself with no assistance from a helper. 5-Set-up or Clean-up Assistance-helper sets up or cleans up; patient completes activity. [place] assists only prior to or following the activity. 4-Supervision or Touching Assistance-helper provides verbal cues and/or touching/steadying and/or contact guard assistance as patient completes activity. Assistance may be provided throughout the activity or intermittently. 3-Partial/Moderate Assistance-helper does LESS THAN HALF the effort. [place] lifts, holds or supports trunk or limbs, but provides less than half the effort. 2-Substantial/Maximal Assistance-helper does MORE THAN HALF the effort. [place] lifts or holds trunk or limbs and provides more than half the effort. 2-Pvbypzncp-oennit does ALL the effort. Patient does none of the effort to complete the activity. Or, the assistance of 2 or more helpers is required for the patient to complete the activity. If activity was not attempted, code reason: 7-Patient Refused. 9-Not Applicable-not attempted and the patient did not perform the activity before the current illness, exacerbation or injury. 10-Not Attempted due to Environmental Limitations-(lack of equipment, weather restraints, etc.). 88-Not Attempted due to Medical Conditions or Safety Concerns. Self Care: Independent Functional Cognition: Independent DME/Equipment: Grab Bars, Tub/Shower Drive Self: Yes OT Current Status Subjective Pt denies pain, continues to report loss of L peripheral vision. Appearance Pt returned to supine in bed, family in room at OT departure. Mental Status/Objective Patient Orientation: Person, Place, Time, Situation Current Glasses/Contacts: Yes Hearing Aids: No Dentures/Partials: No Hand Dominance: Right Upper Extremity ROM WNL Upper Extremity Coordination intact Upper Extremity Strength 4+/5 ADL-Treatment Oral Hygiene (QC): 6 Upper Body Dressing (QC): 6 (per clinical judgement) Lower Body Dressing (QC): 6 (per clinical judgement) On/Off Footwear (QC): 6 Toileting Hygiene (QC): 6 Supine<>sit: indep. Sit<>stand: indep. Pt ambulated to/from bathroom without device, no lob or unsteadiness exhibited. Able to lower/stand from toilet and perform clothing management without assist. Jarad socks donned/doffed sitting EOB without difficulty. Per chart, pt presents with homonymous hemianopsia. Scanning and saccade appear to be intact. 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 No further OT services warranted at this time. Education OT Patient Education: Disease process, Modified ADL techniques, Progress toward Goal/Update tx plan, Purpose of tx/functional activities, Reviewed precautions, Safety issues Teaching Recipient: Patient, Family Teaching Methods: Demonstration, Discussion Response to Teaching: Verbalize Understanding, Return Demonstration OT Rn Neonatal Goals Rn Neonatal Goals 1=Demonstrate adherence to instructed precautions during ADL tasks. 2=Patient will verbalize/demonstrate understanding of assistive devices/modifications for ADL. 3=Patient will improve strength/tolerance for activity to enable patient to perform ADL's. OT Education/Plan Problem List/Assessment Assessment: Visual-Perceptual Deficit Discharge Recommendations Plan/Recommendations: Discontinue OT Therapy Discharge Recommendati: Home & Family Target Placement outpatient vision rehab Treatment Plan/Plan of Care Treatment,Training & Education: Yes Patient would benefit from OT for education, treatment and training to promote independence in ADL's, mobility, safety and/or upper extremity function for ADL's. Plan of Care: Visual/Perceptual Retrain Treatment Duration: Jul 06, 2021 Frequency: 1 time per week Estimated Hrs Per Day: .25 hour per day Agreement: Yes Rehab Potential: Good Time/GCodes Start Time: 11:14 Stop Time: 11:29 Total Time Billed (hr/min): 15 Billed Treatment Time 1 visit Valentina Arce OT Jul 06, 2021 12:17
--- NOTE | 2021-07-06 13:12 | Diagnostic Imaging Report ---
PROCEDURE: MR imaging of the brain without contrast. TECHNIQUE: Multiplanar, multisequence MR imaging of the brain was performed without contrast. INDICATION: Evaluate for stroke. Balance problems. COMPARISON: 07/04/2021. FINDINGS: Acute/subacute ischemia is seen involving the right temporal occipital region. Additional punctate focus of acute ischemia is seen in the right thalamus. No associated hemorrhage or mass effect. The ventricles, cortical sulci, and basilar cisterns are symmetric and unremarkable. The sellar and suprasellar regions have a normal appearance. The major intracranial flow voids are intact. The brainstem and posterior fossa are unremarkable. Small mucous retention cyst is seen in the left maxillary sinus. Otherwise, the paranasal sinuses and mastoid air cells demonstrate normal signal characteristics. The globes and orbits are symmetric and unremarkable. The scalp and calvarium have a normal appearance. IMPRESSION: 1. Acute/subacute ischemia involving the right temporal occipital region with additional punctate focus in the right thalamus. No evidence of hemorrhage or mass effect. Recommend followup as indicated. Dictated by: Dictated on workstation # [id number]
--- NOTE | 2021-07-06 13:33 | Progress Note - Cardiology ---
Cardiology SOAP Progress Note Subjective: Clay not report cp or palp or syncope or shortness of breath No new focal deficit No n/v/d Objective: I&O/Vital Signs 07/06/21 07/06/21 07/06/21 07/06/21 04:31 07:00 08:00 08:00 Temp 36.6 36.7 Pulse 68 74 82 Resp 16 18 B/P (MAP) 127/62 (83) 151/87 (108) Pulse Ox 94 93 O2 Delivery Room Air Room Air Room Air 07/06/21 11:40 Temp 36.8 Pulse 84 Resp 20 B/P (MAP) 140/82 (101) Pulse Ox 94 O2 Delivery Room Air 07/05/21 23:59 Intake Total 1140 ml Output Total 4 ml Balance 1136 ml Constitutional: AAO x 3, well-developed, well-nourished Respiratory: No accessory muscle use; other (good, bilateral air entry) Cardiovascular: regular rate-rhythm, S1 and S2, systolic murmur (faint BRII at card base) Gastrointestional: No tender; soft; No guarding, No rebound; audible bowel sounds Extremities: No clubbing, No cyanosis, No significant edema Neurologic/Psychiatric: oriented x 3, other (moves all limbs equally) Skin: No rash on exposed areas, No ulcerations on exposed areas Results/Procedures: Labs Laboratory Tests 07/05/21 15:42: Glucometer 285H 07/05/21 20:32: Glucometer 186H 07/06/21 05:55: White Blood Count 8.0, Red Blood Count 5.09, Hemoglobin 14.6, Hematocrit 45, Mean Corpuscular Volume 89, Mean Corpuscular Hemoglobin 29, Mean Corpuscular Hemoglobin Concent 32, Red Cell Distribution Width 12.0, Platelet Count 260, Me an Platelet Volume 10.6, Immature Granulocyte % (Auto) 0, Neutrophils (%) (Auto) 59, Lymphocytes (%) (Auto) 29, Monocytes (%) (Auto) 9, Eosinophils (%) (Auto) 2, Basophils (%) (Auto) 1, Neutrophils # (Auto) 4.7, Lymphocytes # (Auto) 2.3, Monocytes # (Auto) 0.7, Eosinophils # (Auto) 0.2, Basophils # (Auto) 0.1, Immature Granulocyte # (Auto) 0.0, Sodium Level 139, Potassium Level 4.6, Chloride Level 103, Carbon Dioxide Level 24, Anion Gap 12, Blood Urea Nitrogen 26H, Creatinine 1.10, Estimat Glomerular Filtration Rate 68, BUN/Creatinine Ratio 24, Glucose Level 276H, Calcium Level 9.3, Corrected Calcium 9.7, Total Bilirubin 0.4, Aspartate Amino Transf (AST/SGOT) 17, Alanine Aminotransferase (ALT/SGPT) 14, Alkaline Phosphatase 61, Total Protein 6.5, Albumin 3.5 07/06/21 06:17: Glucometer 257H 07/06/21 11:14: Glucometer 359H Laboratory Tests 07/04/21 16:20 07/05/21 05:15 07/06/21 05:55 A/P: Assessment: Recent / acute CVA resulting in L homonymous hemianopsia and subsequent gait im balance, managed by Dr Robledo - Echo on 07/05/21: LVEF 60-65%, study within normal limits Carotid arterial disease, mild to mod (on CTA of head and neck on 07/04/21) Plan: * Management of stroke is by Dr Robledo * Tele has not indicated any arrhythmia. ILR implanted today to monitor for occult A Fib after having obtained an informed consent Clinical Quality Measures Stroke: Date of last known well: Jul 04, 2021 Time of last known well: 14:33 Symptoms onset unknown: Yes JAVON STEIN MD FACP [facility] CCDS Jul 06, 2021 13:33
--- NOTE | 2021-07-06 15:16 | OPERATIVE REPORT ---
DATE OF SERVICE: PREOPERATIVE DIAGNOSIS: Cryptogenic stroke. POSTOPERATIVE DIAGNOSIS: Cryptogenic stroke. PROCEDURE: Implantable loop recorder implantation. INDICATIONS: The patient is a 61-year-old man who recently had a stroke and the etiology is unclear. Occult atrial fibrillation is suspected. No atrial fibrillation was seen on approximately 48 hours of telemetry. DESCRIPTION OF PROCEDURE: Implantable loop recorder implantation was carried out after having obtained an informed consent. The left prepectoral area was prepared and draped in the usual sterile fashion. Lidocaine 1% was used for local anesthesia. The tools provided with [employer] LINQ II device were used to make a pocket anterior to the left fourth intercostal space into which the device was placed and the wound edges were closed using Dermabond and Steri-Strips. He tolerated the procedure well. The serial number of the device is [id number]. Job ID: [id number] DocumentID: [id number] Dictated Date: 07/06/2021 13:36:52 Campus Coordinator Date: 07/06/2021 15:15:41 Dictated By: JAVON STEIN MD, MA, FACP, FACC,
[2021-07-06] MEDS ORDERED: METF-399 PO (15:35)
[2021-07-06] MEDS ORDERED: EMPA10TA PO (15:35)
[2021-07-06] MEDS ORDERED: ATOR20TA66 PO (15:35)
[2021-07-06] MEDS ORDERED: LISI20TA26 PO (15:35)
[2021-07-06] MEDS ORDERED: ASPI-1238 PO (15:35)
[2021-07-06 16:02] VITALS: BP 122/65
--- NOTE | 2021-07-06 19:05 | Progress Note ---
Subjective Subjective/Events-last exam Patient feeling better this AM. Still having some visual deficits. Tolerating PO diet w/o dysphagia. Ambulating around room without concerns. Review of Systems Pulmonary: No Dyspnea, No Cough Cardiovascular: No: Chest Pain, Palpitations, Edema Gastrointestinal: No: Nausea, Vomiting, Abdominal Pain Neurological: Weakness, Incoordination Objective Exam Last Set of Vital Signs Vital Signs Date Time Temp Pulse Resp B/P (MAP) Pulse Ox O2 Delivery O2 Flow Rate FiO2 07/06/21 16:02 36.6 88 18 122/65 (84) 95 Room Air Capillary Refill : Less Than 3 Seconds I&O Intake and Output 07/06/21 00:00 Intake Total 2490 ml Output Total 806 ml Balance 1684 ml Intake Oral 2490 ml Output Urine Total 806 ml # Bowel Movements 3 General: Alert, Oriented X3, Cooperative, No Acute Distress HEENT: PERRLA, EOMI Lungs: Clear to Auscultation, Normal Air Movement Heart: Regular Rate, No Murmurs Abdomen: Normal Bowel Sounds, Soft, No Tenderness, No Masses Extremities: No Edema, No Tenderness/Swelling Skin: No Rashes, No Breakdown Neuro: Normal Speech, Strength at 5/5 X4 Ext, Sensation Intact, Cranial Nerves 3-12 NL Psych/Mental Status: Mental Status NL, Mood NL Results/Procedures Lab Laboratory Tests 07/05/21 20:32: Glucometer 186H 07/06/21 05:55: White Blood Count 8.0, Red Blood Count 5.09, Hemoglobin 14.6, Hematocrit 45, Mean Corpuscular Volume 89, Mean Corpuscular Hemoglobin 29, Mean Corpuscular Hemoglobin Concent 32, Red Cell Distribution Width 12.0, Platelet Count 260, Mean Platelet Volume 10.6, Immature Granulocyte % (Auto) 0, Neutrophils (%) (Auto) 59, Lymphocytes (%) (Auto) 29, Monocytes (%) (Auto) 9, Eosinophils (%) (Auto) 2, Basophils (%) (Auto) 1, Neutrophils # (Auto) 4.7, Lymphocytes # (Auto) 2.3, Monocytes # (Auto) 0.7, Eosinophils # (Auto) 0.2, Basophils # (Auto) 0.1, Immature Granulocyte # (Auto) 0.0, Sodium Level 139, Potassium Level 4.6, Chloride Level 103, Carbon Dioxide Level 24, Anion Gap 12, Blood Urea Nitrogen 26H, Creatinine 1.10, Estimat Glomerular Filtration Rate 68, BUN/Creatinine Ratio 24, Glucose Level 276H, Calcium Level 9.3, Corrected Calcium 9.7, Total Bilirubin 0.4, Aspartate Amino Transf (AST/SGOT) 17, Alanine Aminotransferase (ALT/SGPT) 14, Alkaline Phosphatase 61, Total Protein 6.5, Albumin 3.5 07/06/21 06:17: Glucometer 257H 07/06/21 11:14: Glucometer 359H 07/06/21 16:01: Glucometer 221H Assessment/Plan Assessment/Plan (1) Acute ischemic stroke Status: Acute Assessment & Plan: 07/06: MRI consistent with acute/SubAcute ischemic stroke, continue ASA/Statin, PT/OT/Speech, Cardiology consulted for echo Clinical Quality Measures Stroke: Date of last known well: Jul 04, 2021 Time of last known well: 14:33 Symptoms onset unknown: Yes JANINA MOSER MD Jul 06, 2021 19:05
[2021-07-06 19:50] VITALS: BP 115/66
[2021-07-06] MEDS: ENOXAPARIN 40 MG/0.4 ML (LOVENOX) SYR SC SCH (21:37)
[2021-07-07 00:05] VITALS: BP 133/82
[2021-07-07 04:23] VITALS: BP 116/70
[2021-07-07] MEDS: CATHETER FLUSH 10 ML SYR IV SCH ×2 (05:46→14:00)
[2021-07-07] MEDS: inSUlin ASPART (NovoLOG) 1 UNIT/0.01 ML (CHARGE PER UNIT) SC SCH ×2 (05:47→11:52)
[2021-07-07 08:20] VITALS: BP 155/88
--- NOTE | 2021-07-07 09:05 | Diagnostic Imaging Report ---
PROCEDURE: US carotid duplex, bilateral. TECHNIQUE: Multiple real-time grayscale images were obtained over the carotid arteries in various projections, bilaterally. Additional spectral analysis and color Doppler duplex images were also obtained. INDICATION: CVA Parameters based on the consensus panel Prakash-Scale and Doppler ultrasound criteria published June 2003, Radiology, Volume 229. DOPPLER (peak systolic velocity M/S Right Left CCA .97 .83 ICA Proximal .85 .60 ICA Mid .67 .60 ICA Distal .42 .60 RATIO .89 .72 ECA 1.3 1.3 VERT .45 .49 Mild plaque is seen within the bilateral carotid bulbs and bifurcations. Waveforms are normal. Normal antegrade flow within the vertebral arteries. IMPRESSION: Less than 50% stenosis the bilateral internal carotid arteries by velocity and ratio criteria. Dictated by: Dictated on workstation # [id number]
[2021-07-07] MEDS: polyethylene glycoL POWDER 17 GM (MIRALAX) PACK PO SCH (09:33)
[2021-07-07] MEDS: SENNA W/DOCUSATE (SENOKOT S) TABLET PO SCH (09:33)
[2021-07-07] MEDS: ASPIRIN E.C. 81 MG (ECOTRIN) TAB PO SCH (09:33)
--- NOTE | 2021-07-07 10:08 | Progress Note - Cardiology ---
Cardiology SOAP Progress Note Subjective: Sitting up in bed No c/o CP or SOB Objective: I&O/Vital Signs 07/07/21 07/07/21 07/07/21 07/07/21 00:05 01:00 04:23 07:00 Temp 35.8 36.2 Pulse 81 69 67 72 Resp 18 18 B/P (MAP) 133/82 (99) 116/70 (85) Pulse Ox 93 94 O2 Delivery Room Air Room Air 07/07/21 07/07/21 08:00 08:20 Temp 36.7 Pulse 72 Resp 18 B/P (MAP) 155/88 (110) Pulse Ox 96 O2 Delivery Room Air Room Air 07/07/21 00:00 Intake Total 1100 ml Balance 1100 ml Device Insertion Site: without hematoma, no signs of inflammation Swelling: without swelling Drainage: No Constitutional: AAO x 3, well-developed, well-nourished Respiratory: No accessory muscle use; other (good, bilateral air entry) Cardiovascular: regular rate-rhythm, S1 and S2, systolic murmur (faint BRII at card base) Gastrointestional: No tender; soft; No guarding, No rebound; audible bowel sounds Extremities: No clubbing, No cyanosis, No significant edema Neurologic/Psychiatric: oriented x 3, other (moves all limbs equally) Skin: No rash on exposed areas, No ulcerations on exposed areas Results/Procedures: Labs Laboratory Tests 07/06/21 11:14: Glucometer 359H 07/06/21 16:01: Glucometer 221H 07/06/21 20:54: Glucometer 217H 07/07/21 05:45: Glucometer 159H Laboratory Tests 07/06/21 05:55 A/P: Assessment: Recent / acute CVA resulting in L homonymous hemianopsia and subsequent gait imbalance, managed by Dr Meena Mcmillan on 07/05/21: LVEF 60-65%, study within normal limits Carotid arterial disease, mild to mod (on CTA of head and neck on 07/04/21) Plan: * Management of stroke is by medical services * Tele has not indicated any arrhythmi * ILR implanted 07-06-21 to monitor for occult A Fib * Multiple questions answered Clinical Quality Measures Stroke: Date of last known well: Jul 04, 2021 Time of last known well: 14:33 Symptoms onset unknown: Yes MICHAEL SOLORZANO Jul 07, 2021 10:08
--- NOTE | 2021-07-07 10:20 | Physical Therapy Daily Note ---
PT Daily Note-Current Subjective Patient lying supine in bed upon PT arrival, agreeable to treatment. Patient rates pain at 0/10 currently. Reports "I should be going home soon", but reports no doctor has discharged him yet. Mental Status Patient Orientation: Person, Place, Time, Situation Transfers SCALE: Activities may be completed with or without assistive devices. 6-Ptstaxcexw-vdbfcau completes the activity by him/herself with no assistance from a helper. 5-Set-up or Clean-up Assistance-helper sets up or cleans up; patient completes activity. [place] assists only prior to or following the activity. 4-Supervision or Touching Assistance-helper provides verbal cues and/or touching/steadying and/or contact guard assistance as patient completes activity. Assistance may be provided throughout the activity or intermittently. 3-Partial/Moderate Assistance-helper does LESS THAN HALF the effort. [place] lifts, holds or supports trunk or limbs, but provides less than half the effort. 2-Substantial/Maximal Assistance-helper does MORE THAN HALF the effort. [place] lifts or holds trunk or limbs and provides more than half the effort. 5-Hyvxeglwu-raanta does ALL the effort. Patient does none of the effort to complete the activity. Or, the assistance of 2 or more helpers is required for the patient to complete the activity. If activity was not attempted, code reason: 7-Patient Refused. 9-Not Applicable-not attempted and the patient did not perform the activity before the current illness, exacerbation or injury. 10-Not Attempted due to Environmental Limitations-(lack of equipment, weather restraints, etc.). 88-Not Attempted due to Medical Conditions or Safety Concerns. Roll Left & Right (QC): 6 Sit to Lying (QC): 6 Lying to Sitting/Side of Bed(Q: 6 Sit to Stand (QC): 6 Chair/Sfs-yi-Zpenp Xfer(QC): 6 Toilet Transfer (QC): 6 Gait Training Does the Patient Walk?: Yes Distance: 450 feet Walk 10 feet (QC): 6 Walk 50 ft with 2 Turns(QC): 6 Walk 150 ft (QC): 6 Gait Persons Needed: 0 Gait Assistive Device: None Stair Training Stair Training: Handrails/: 1 handrail #of Steps: 10 1 Step (curb) (QC): 5 4 Steps (QC): 5 12 Steps (QC): 5 Stairs: Pattern: Reciprocal Assessment Current Status: Good Progress Patient tolerated treatment well. Independent with all bed mobility and transfers. Patient ambulates 450 feet with no assistive device, with SBA and verbal cues only for path. Patient demonstrates good overall gait pattern with no obvious deficits and no loss of balance. Patient ascends/descends 10 steps using left handrail with SBA for safety. Patient in bed post treatment with all needs met, nursing notified, call light in reach. PT Care Manager Cna Goals Care Manager Cna Goals PT Care Manager Cna Goals Time Frame: Jul 13, 2021 Does the Patient Walk: Yes Walk 10 feet (QC): 6 Walk 50ft with 2 Turns (QC): 6 Walk 150 ft (QC): 6 Walking 10ft on Uneven Surface: 6 1 Step (curb) (QC): 6 4 Steps (QC): 6 12 Steps (QC): 6 PT Plan Treatment/Plan Treatment Plan: Continue Plan of Care Treatment Plan: Bed Mobility, Education, Functional Activity Cheryl, Functional Strength, Group Therapy, Gait, Safety, Therapeutic Exercise, Transfers Treatment Duration: Aug 26, 2021 Frequency: 6 times per week Estimated Hrs Per Day: .5 hour per day Safety Risks/Education Patient Education: Gait Training, Steps Teaching Recipient: Patient Teaching Methods: Demonstration, Discussion Response to Teaching: Verbalize Understanding, Return Demonstration Time/GCodes Time In: 950 Time Out: 1010 Total Billed Treatment Time: 20 Total Billed Treatment Visit, Gait SMILEY VALVERDE PT Jul 07, 2021 10:20
[2021-07-07 12:08] VITALS: BP 149/83
--- NOTE | 2021-07-07 12:39 | Discharge Summary ---
Diagnosis/Chief Complaint Date of Admission Jul 04, 2021 at 17:40 Date of Discharge Discharge Diagnosis Problems/Diagnosis: (1) Acute ischemic stroke Assessment & Plan: 07/06: MRI consistent with acute/SubAcute ischemic stroke, continue ASA/Statin, PT/OT/Speech, Cardiology consulted for echo Status: Acute Discharge Summary-Simple/Stand Consultations Discharge Physical Examination Allergies: Coded Allergies: No Known Drug Allergies (Unverified , 06/14/12) Vitals & I&Os Vital Sign - Last 12Hours Date Time Temp Pulse Resp B/P (MAP) Pulse Ox O2 Delivery O2 Flow Rate FiO2 07/07/21 12:08 37.0 84 20 149/83 (105) 96 Room Air Intake and Output 07/07/21 00:00 Intake Total 1100 ml Balance 1100 ml Hospital Course See final discharge diagnosis. Discharge Instructions to patient/family Please see electronic discharge instructions given to patient. Discharge Medications Reviewed and agree with Discharge Medication list on patient's Discharge Instruction sheet Clinical Quality Measures Stroke: Date of last known well: Jul 04, 2021 Time of last known well: 14:33 Symptoms onset unknown: Yes JANINA MOSER MD Jul 07, 2021 12:39
[2021-07-07] MEDS ORDERED: ATOR80TA76 PO (12:40)
--- NOTE | 2021-07-07 12:41 | Discharge Summary ---
Discharge [facility] Reconcile Patient Problems Problems Reviewed?: Yes Discharge Medications New, Converted or Re-Newed RX: Transmitted to Pharmacy New Medications: Atorvastatin Calcium (Atorvastatin Calcium) 80 Mg Tablet 80 MG PO HS, #30 TAB Continued Medications: Aspirin (Aspirin EC) 81 Mg Tablet.dr 81 MG PO DAILY, TAB Empagliflozin (Jardiance) 10 Mg Tablet 10 MG PO DAILY, TAB Lisinopril (Lisinopril) 20 Mg Tablet 20 MG PO DAILY, TAB LAST FILLED 12-12-2020 #90/90 DAY SUPPLY Metformin HCl (Metformin HCl) 1,000 Mg Tablet 1000 MG PO BIDPC, TAB Discontinued Medications: Atorvastatin Calcium (Atorvastatin Calcium) 20 Mg Tablet 20 MG PO DAILY, TAB LAST FILLED 12-17-2020 #90/90 DAY SUPPLY Patient Instructions Goal/Follow Up Appt: F.u with Cardiology on Loop recorder F.u with PCP 1-2 weeks at [facility] Activity & Diet Discharge Diet: Cardiac Diet Activity as Tolerated: Yes JANINA MOSER MD Jul 07, 2021 12:41
--- NOTE | 2021-07-07 16:48 | Progress Note - Cardiology ---
Cardiology SOAP Progress Note Subjective: No cp or palp or syncope or shortness of breath at rest No n/v/d Visual field cut as before Denies dizziness Objective: I&O/Vital Signs 07/07/21 07/07/21 07/07/21 07/07/21 07:00 08:00 08:20 12:08 Temp 36.7 37.0 Pulse 72 72 84 Resp 18 20 B/P (MAP) 155/88 (110) 149/83 (105) Pulse Ox 96 96 O2 Delivery Room Air Room Air Room Air 07/07/21 07/07/21 13:00 15:00 Pulse 83 B/P (MAP) 07/07/21 00:00 Intake Total 1100 ml Balance 1100 ml Device Insertion Site: without hematoma, no signs of inflammation Swelling: without swelling Drainage: No Constitutional: AAO x 3, well-developed, well-nourished Respiratory: No accessory muscle use; other (good, bilateral air entry) Cardiovascular: regular rate-rhythm, S1 and S2, systolic murmur (faint BRII at card base) Gastrointestional: No tender; soft; No guarding, No rebound; audible bowel soun ds Extremities: No clubbing, No cyanosis, No significant edema Neurologic/Psychiatric: oriented x 3, other (moves all limbs equally) Skin: No rash on exposed areas, No ulcerations on exposed areas Results/Procedures: Labs Laboratory Tests 07/06/21 20:54: Glucometer 217H 07/07/21 05:45: Glucometer 159H 07/07/21 10:51: Glucometer 277H A/P: Assessment: Recent / acute CVA resulting in L homonymous hemianopsia and subsequent gait imbalance, managed by Dr Robledo - Echo on 07/05/21: LVEF 60-65%, study within normal limits - ILR implanted 07-06-21 to monitor for occult A Fib Carotid arterial disease, mild to mod (on CTA of head and neck on 07/04/21) Plan: * Management of stroke is by medical services * Tele has not indicated any arrhythmia, ILR in place to monitor for A Fib * Oupt f/u advised * Multiple questions answered Clinical Quality Measures Stroke: Date of last known well: Jul 04, 2021 Time of last known well: 14:33 Symptoms onset unknown: Yes JAVON STEIN MD FACP FAC CCDS Jul 07, 2021 16:48
== END 2021-07-07 15:00 | disposition home or self-care (01) | DRG 42 ==
LOC: EDUNIT# 16:08 → ER 16:10 → CSD 17:40 → EDLOC 17:40 → 4TH 07-05 13:28
PROVIDERS: ADMIT Internal Medicine; ATTEND Family Medicine
PROC: 0JH602Z Insertion of Monitoring Device into Chest Subcutaneous Tissue and Fascia, Open Approach (ICD-10-PCS; principal; 2021-07-06)
DX: I63.9 Cerebral infarction, unspecified (principal); R26.0 Ataxic gait; H53.462 Homonymous bilateral field defects, left side; R29.701 NIHSS score 1; I77.89 Other specified disorders of arteries and arterioles; E11.9 Type 2 diabetes mellitus without complications; I10 Essential (primary) hypertension; E78.5 Hyperlipidemia, unspecified; E78.00 Pure hypercholesterolemia, unspecified; Z79.899 Other long term (current) drug therapy; Z79.82 Long term (current) use of aspirin; Z79.84 Long term (current) use of oral hypoglycemic drugs
CPT/HCPCS: 33285; 36415; 70450; 70496; 70498; 70551; 71045; 80048; 80053; 80061; 81000; 82947; 84484; 85025; 85379; 85610; 85730; 93005; 93041; 93306; 93880